=== PATIENT | female | born 1980 | race Caucasian/White ===

== ENCOUNTER 2016-05-04 01:04 | Emergency (ER) | payer SELFPAY ==
[~2016-05-04] VITALS: Ht 162.6 cm; Wt 102.1 kg
[2016-05-04 01:23] VITALS: BP 156/102
--- NOTE | 2016-05-04 01:27 | NUR ---
TO ER BED 2
--- NOTE | 2016-05-04 01:33 | NUR ---
PATIENT PRESENTS TO ED WITH BL EYE REDNESS . PT STATES SHE CURRENTLY HAS NO PAIN AND FEELS THE CAUSE MAY HAVE SOMETHING TO DO WITH HER CAT AT HOME. PT REPORTS THAT THIS IS THE FIRST TIME SHE HAS EXPERIENCED THIS . DENIES N/V/D; SKIN IS PINK/WARM/DRY; AAOX4 WITH EVEN AND STEADY GAIT; LUNGS CLEAR BL; HR EVEN AND REGULAR; PT DENIES ANY FEVER, CP, SOB, OR COUGH AT THIS TIME; PATIENT STATES PAIN OF 0/10 AT THIS TIME; VSS; PATIENT POSITIONED FOR COMFORT; HOB ELEVATED; BEDRAILS UP X2; BED DOWN. ER MD MADE AWARE OF PT STATUS.
[2016-05-04 02:09] VITALS: BP 156/102
--- NOTE | 2016-05-04 02:09 | NUR ---
Patient discharged with v/s stable. Written and verbal after care instructions given and explained. Patient alert, oriented and verbalized understanding of instructions. Ambulatory with steady gait. All questions addressed prior to discharge. ID band removed. Patient advised to follow up with PMD. Rx of TOBRAMYCIN 2DROPS THREE TIMES A DAY AND NAPROSYN given. Patient educated on indication of medication including possible reaction and side effects. Opportunity to ask questions provided and answered.
== END 2016-05-04 02:09 | disposition home or self-care (01) ==
LOC: MED 01:04
DX: H10.33 Unspecified acute conjunctivitis, bilateral (principal)

== ENCOUNTER 2020-10-18 00:15 | Emergency (ER) | payer SELFPAY ==
[~2020-10-18] VITALS: Ht 167.6 cm; Wt 99.8 kg
[2020-10-18 00:20] VITALS: BP 147/92
--- NOTE | 2020-10-18 00:22 | NUR ---
TO LOBBY A/W BED AMBULATORY
[2020-10-18] MEDS ORDERED: KETOROLAC 30 MG/ML VIAL IM ONE (01:15)
--- NOTE | 2020-10-18 01:35 | NUR ---
PT. TAKEN TO CT VIA W/C
[2020-10-18] MEDS ORDERED: IBUP-2218 PO (02:18)
--- NOTE | 2020-10-18 02:30 | NUR ---
ALL RESULTS BACK AND NOTED BY ERMD AND FOR D/C
[2020-10-18] MEDS ORDERED: IBUPROFEN 800 MG TAB ONE (02:56)
--- NOTE | 2020-10-18 03:00 | NUR ---
MEDICATED IBUPROFEN 800MG, PO. PATIENT REFUSED TORADOL IM, ERMD NOTED
[2020-10-18] MEDS ORDERED: IBUPROFEN 800 MG TAB PO ONE (03:25)
--- NOTE | 2020-10-18 03:45 | NUR ---
SPLINTED AND WRAPPED WITH MARGI WRAP BY ERMD. CAP REFILL WNL.
[2020-10-18 04:00] VITALS: BP 127/87
--- NOTE | 2020-10-18 04:00 | NUR ---
Patient discharged with v/s stable. Written and verbal after care instructions given and explained. Patient alert, oriented and verbalized understanding of instructions. Ambulatory with . All questions addressed prior to discharge. ID band removed. Patient advised to follow up with PMD. Rx of IBUPROFEN given. Patient educated on indication of medication including possible reaction and side effects. Opportunity to ask questions provided and answered.
== END 2020-10-18 04:00 | disposition home or self-care (01) ==
LOC: MED 00:15
DX: S99.921A Unspecified injury of right foot, initial encounter (principal); M79.605 Pain in left leg; Z79.899 Other long term (current) drug therapy; V43.52XA Car driver injured in collision with other type car in traffic accident, initial encounter; Y93.89 Activity, other specified; Y92.89 Other specified places as the place of occurrence of the external cause; Y99.8 Other external cause status
CPT/HCPCS: 29515; 73590; 73630; 81025; 99284